=== PATIENT | female | born 1975 | race Hispanic/Latino ===

== ENCOUNTER 2017-08-22 03:17 | Emergency (ER) | payer BC ==
[2017-08-22] MEDS ORDERED: ONDANSETRON 4 MG/2 ML VIAL ONE (04:25)
[2017-08-22] MEDS ORDERED: DICYCLOMINE HCL 10 MG CAP ONE (04:25)
[2017-08-22] MEDS ORDERED: LOPERAMIDE HCL 2 MG CAPSULE ONE (04:25)
[2017-08-22 04:36] LABS: Absolute Lymphocytes (CBC) 1.3 K/uL (0.7-4.9); Absolute Monocytes 0.8 K/uL (0.1-1.3); Absolute Neutrophil 15.5 K/uL (1.8-8.0); Basophils % 0.3 % (0-1.3); Eosinophils % 0.2 % (0-4.4); Hematocrit 35.3 % (36.0-45.0); Lymphocytes % 7.3 % (15.3-44.8); MCH 23.8 pg (27.0-35.0); MCV 75.4 fL (80-100); MPV 8.2 fL (7.6-11.3); Monocytes % 4.7 % (3.3-12.3); RBC Red Blood Cell Count 4.68 M/uL (3.86-4.86)
[2017-08-22 04:54] LABS: Bicarbonate 20 mEq/L (21-31); Glucose Level 131 mg/dL (65-120); Lipase 20 U/L (22-51); Sodium Level 137 mEq/L (135-145)
[2017-08-22 05:00] LABS: ALT/SGPT 23 IU/L (10-60); AST/SGOT 28 IU/L (10-42); Alkaline Phosphatase 75 IU/L (42-121); Amylase Level 47 U/L (28-100); BUN Blood Urea Nitrogen 10 mg/dL (6-20); Bilirubin Direct 0.1 mg/dL (0-0.2); Bilirubin Total 0.3 mg/dL (0.3-1.2); Protein, Total 7.6 g/dL (6.0-8.3)
[2017-08-22 05:04] LABS: Blood Morphology Comment NOT SEEN (NOT SEEN); Platelet Estimate ADEQ
[2017-08-22 05:15] LABS: Urine Blood 1+ (NEG); Urine Glucose NEGATIVE (NEG); Urine Protein NEGATIVE (NEG); Urine Specific Gravity 1.025 (1.005-1.030); Urine pH 5.5 (5.0-7.0)
[2017-08-22 05:18] LABS: Urine Bacteria >50 /HPF (<20); Urine Culture Reflex Order REFLEXED
[2017-08-22] MEDS ORDERED: KETOROLAC 30 MG/ML INJ ONE (05:27)
--- NOTE | 2017-08-22 05:35 | ER ---
Nurse's Notes [facility] Name: Cristina Reese Age: 42 yrs Sex: Female : 1975 Arrival Date: 08/22/2017 Time: 03:18 Bed 15 Private MD: Diagnosis: Vomiting, unspecified;Diarrhea, unspecified Presentation: 08/22 03:36 Risk Assessment: Do you want to hurt yourself or someone else? Patient reports no ak1 desire to harm self or others. Initial Sepsis Screen: Does the patient meet any 2 criteria? No. Patient's initial sepsis screen is negative. Does the patient have a suspected source of infection? No. Patient's initial sepsis screen is negative. Care prior to arrival: None. 03:36 Acuity: SRI 3 ak1 03:36 Method Of Arrival: Wheelchair ea 03:36 Presenting complaint: Patient states: Reports she started feeling sick at midnight ea reports having nausea, vomiting and diarrhea. States " I ate shrimp pasta at dinner and at 12 is when everything started". Transition of care: patient was not received from another setting of care. Onset of symptoms was August 22, 2017. Triage Assessment: 03:35 General: Appears uncomfortable, Behavior is calm, cooperative. 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 - Social history:: Smoking status: Patient/guardian denies using tobacco. Screenin:36 Abuse screen: Denies threats or abuse. Denies injuries from another. Nutritional ak1 screening: No deficits noted. Tuberculosis screening: No symptoms or risk factors identified. Fall Risk None identified. Assessment: 03:39 General: Appears uncomfortable, Behavior is cooperative. Pain: Complains of pain in ea right lower quadrant and left lower quadrant Pain currently is 9 out of 10 on a pain scale. Quality of pain is described as crampy, Pain began 4 hours ago. Neuro: Level of Consciousness is awake, alert, obeys commands, Oriented to person, place, time, situation. Cardiovascular: Heart tones S1 S2 present Patient's skin is warm and dry. Respiratory: Airway is patent Respiratory effort is even, unlabored, Respiratory pattern is regular, Breath sounds are clear bilaterally. GI: Bowel sounds present X 4 quads. Abd is soft X 4 quads Abd is non tender in right lower quadrant and left lower quadrant Reports lower abdominal pain, diarrhea, nausea, vomiting. GI: Reports cramping. : No signs and/or symptoms were reported regarding the genitourinary system. EENT: No signs and/or symptoms were reported regarding the EENT system. Derm: Skin is dry, Skin is pale, Skin temperature is warm. Musculoskeletal: Circulation, motion, and sensation intact. 04:33 Reassessment: Patient appears in no apparent distress at this time. Patient and/or ak1 family updated on plan of care and expected duration. Pain level reassessed. Patient states symptoms have not improved. 05:42 Reassessment: Patient appears in no apparent distress at this time. Patient and/or ak1 family updated on plan of care and expected duration. Pain level reassessed. Patient is alert, oriented x 3, equal unlabored respirations, skin warm/dry/pink. Patient states feeling better. Patient states symptoms have improved. Vital Signs: 03:34 BP 149 / 83; Pulse 104; Resp 20; Temp 98.2(O); Pulse Ox 100% on R/A; Weight 104.33 kg ak1 (R); Height 5 ft. 5 in. (165.10 cm) (R); Pain 8/10; 05:31 BP 140 / 76; Pulse 91; Resp 18; Temp 98.4(O); Pulse Ox 97% on R/A; Pain 6/10; ak1 03:34 Body Mass Index 38.27 (104.33 kg, 165.10 cm) ak1 ED Course: 03:18 Patient arrived in ED. am2 03:35 Arm band placed on Patient placed in an exam room, on a stretcher, on pulse oximetry, ak1 Patient notified of wait time. 03:36 Triage completed. ak1 03:38 Anahy Felder, FLORY is Primary Nurse. ea 03:39 Patient has correct armband on for positive identification. Placed in gown. Bed in low ea position. Call light in reach. Side rails up X 1. 03:59 Jitendra Nguyen MD is Attending Physician. tw4 04:21 Initial lab(s) drawn, by al, sent to lab. Urine collected:. Inserted saline lock: 20 ak1 gauge in right antecubital area, using aseptic technique. Blood collected. 05:32 No provider procedures requiring assistance completed. ak1 05:42 IV discontinued, intact, bleeding controlled, No redness/swelling at site. Pressure ak1 dressing applied. Administered Medications: 04:28 Drug: Zofran 4 mg Route: IVP; Site: right antecubital; ak1 05:11 Follow up: Response: No adverse reaction ea 04:28 Drug: Imodium A-D 4 mg Route: PO; ak1 05:11 Follow up: Response: No adverse reaction ea 04:28 Drug: Bentyl 20 mg Route: PO; ak1 05:11 Follow up: Response: No adverse reaction ea 05:31 Drug: TORadol 30 mg Route: IVP; Site: right antecubital; ak1 05:31 Follow up: Response: No adverse reaction; Medication administered at discharge. ak1 Outcome: 05:34 Discharge ordered by . tw4 05:41 Discharged to home ambulatory, with family. ak1 05:41 Condition: improved 05:41 Discharge instructions given to patient, Instructed on discharge instructions, follow up and referral plans. no drinking with medication, no driving heavy equipment, medication usage, Demonstrated understanding of instructions, follow-up care, medications, Prescriptions given X 3. 05:56 Patient left the ED. ak1 Signatures: Amara Michaels RN RN ak1 Yael Siddiqui Elena, RN Jitendra Meek ea, MD MD tw4
--- NOTE | 2017-08-22 05:35 | EDPHYS ---
Physician Documentation [facility] Name: Cristina Reese Age: 42 yrs Sex: Female : 1975 Arrival Date: 08/22/2017 Time: 03:18 Bed 15 Private MD: ED Physician Jitendra Nguyen HPI: 08/22 04:07 This 42 yrs old Female presents to ER via Unassigned with complaints of tw4 Abdominal Pain, Abdominal Cramping, Nausea/Vomiting/Diarrhea. 04:07 The patient presents with abdominal pain that is diffuse. Onset: The symptoms/episode tw4 began/occurred today. The symptoms do not radiate. The symptoms are described as dull. Modifying factors: The symptoms are alleviated by nothing, the symptoms are aggravated by alcohol. Severity of pain: At its worst the pain was moderate in the emergency department the pain is unchanged. 04:07 Associated signs and symptoms: Pertinent positives: nausea, vomiting, and diarrhea, tw4 nausea and vomiting, diarrhea, Pertinent negatives: anorexia, blood in stools, chest pain, constipation. The patient has not experienced similar symptoms in the past. 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 - Social history:: Smoking status: Patient/guardian denies using tobacco. ROS: 04:07 Constitutional: Negative for fever, chills, and weight loss, Cardiovascular: Negative tw4 for chest pain, palpitations, and edema, Respiratory: Negative for shortness of breath, cough, wheezing, and pleuritic chest pain. 04:07 Abdomen/GI: Positive for abdominal pain, nausea and vomiting, nausea, vomiting, and diarrhea, nausea, vomiting, diarrhea, abdominal cramps, Negative for abdominal distension, anorexia, dysphagia, hematemesis, black/tarry stool, rectal pain. Exam: 04:11 Constitutional: This is a well developed, well nourished patient who is awake, alert, tw4 and in no acute distress. Head/Face: Normocephalic, atraumatic. Chest/axilla: Normal chest wall appearance and motion. Nontender with no deformity. No lesions are appreciated. Cardiovascular: Regular rate and rhythm with a normal S1 and S2. No gallops, murmurs, or rubs. Normal PMI, no JVD. No pulse deficits. Respiratory: Lungs have equal breath sounds bilaterally, clear to auscultation and percussion. No rales, rhonchi or wheezes noted. No increased work of breathing, no retractions or nasal flaring. MS/ Extremity: Pulses equal, no cyanosis. Neurovascular intact. Full, normal range of motion. Neuro: Awake and alert, GCS 15, oriented to person, place, time, and situation. Cranial nerves II-XII grossly intact. Motor strength 5/5 in all extremities. Sensory grossly intact. Cerebellar exam normal. Normal gait. 04:11 Abdomen/GI: Inspection: abdomen appears normal, Bowel sounds: diminished, Palpation: mild abdominal tenderness, in all quadrants. Vital Signs: 03:34 BP 149 / 83; Pulse 104; Resp 20; Temp 98.2(O); Pulse Ox 100% on R/A; Weight 104.33 kg ak1 (R); Height 5 ft. 5 in. (165.10 cm) (R); Pain 8/10; 05:31 BP 140 / 76; Pulse 91; Resp 18; Temp 98.4(O); Pulse Ox 97% on R/A; Pain 6/10; ak1 03:34 Body Mass Index 38.27 (104.33 kg, 165.10 cm) ak1 MDM: 03:59 Patient medically screened. tw4 05:45 Differential diagnosis: cholecystitis, Cholelithiasis, diverticulitis, gastritis, tw4 gastroesophageal reflux disease, GI Bleed, non-specific abd pain. Data reviewed: vital signs, nurses notes. Medication response: Zofran relieved the patient's nausea. Response to treatment: the patient's symptoms have resolved after treatment, and as a result, I will discharge patient. Special discussion: Based on the patient's Hx, exam, and Dx evaluation, there is no indication for emergent surgery or inpatient Tx. It is understood by the patient/guardian that if the Sx's persist or worsen they need to return immediately for re-evaluation. I discussed with the patient/guardian in detail that at this point there is no indication for admission to the hospital. It is understood, however, that if the symptoms persist or worsen the patient needs to return immediately for re-evaluation. ED course: Pt states she feels better after IVF hydration and antiemetics. 08/22 03:59 Order name: Amylase, Serum; Complete Time: 05:14 tw4 08/22 03:59 Order name: Basic Metabolic Panel; Complete Time: 05:14 tw 08/22 05:15 Interpretation: Normal except: CO2 20; GLUC 131. tw08/22 03:59 Order name: CBC with Diff; Complete Time: 05:14 tw4 08/22 05:14 Interpretation: Normal except: WBC 17.6; HGB 11.1; HCT 35.3; MCV 75.4; MCH 23.8; MCHC tw4 31.6; RDW 16.7; NEUT A 15.5; LYM% 7.3; BRIGID% 87.5. 08/22 03:59 Order name: Hepatic Function; Complete Time: 05:14 [facility] 08/22 05:15 Interpretation: Normal except: GLOB 3.6. tw08/22 03:59 Order name: Lipase; Complete Time: 05:14 [facility] 08/22 05:15 Interpretation: Within normal limits: LIP 20. 08/22 03:59 Order name: Urine Microscopic Only 08/22 04:08 Order name: Urine Dipstick--Ancillary (enter results); Complete Time: 05:18 rg2 08/22 04:08 Order name: Urine --Ancillary (enter results); Complete Time: 05:18 2 08/22 04:38 Order name: Manual Differential; Complete Time: 05:14 EDNM 08/22 05:19 Interpretation: Normal except: BANDS [F] 5; SEGS 82; LYM 8. tw08/22 05:20 Order name: Urine Culture EDNM 08/22 03:59 Order name: IV Saline Lock; Complete Time: 04:21 tw 08/22 03:59 Order name: Labs collected and sent; Complete Time: 04:21 tw 08/22 03:59 Order name: Urine Dipstick-Ancillary (obtain specimen); Complete Time: 04:06 [facility] 08/22 04:08 Order name: Urine Test (obtain specimen); Complete Time: 04:08 2 Administered Medications: 04:28 Drug: Zofran 4 mg Route: IVP; Site: right antecubital; ak1 05:11 Follow up: Response: No adverse reaction ea 04:28 Drug: Imodium A-D 4 mg Route: PO; ak1 05:11 Follow up: Response: No adverse reaction ea 04:28 Drug: Bentyl 20 mg Route: PO; ak1 05:11 Follow up: Response: No adverse reaction ea 05:31 Drug: TORadol 30 mg Route: IVP; Site: right antecubital; ak1 05:31 Follow up: Response: No adverse reaction; Medication administered at discharge. ak1 Disposition: 08/22/17 05:34 Discharged to Home. Impression: Vomiting, unspecified, Diarrhea, unspecified. - Condition is Stable. - Discharge Instructions: Food Choices to Help Relieve Diarrhea, Adult, Diarrhea, Food Poisoning, Nausea and Vomiting, Diarrhea, [id number], Clear Liquid Diet, [id number], Food Poisoning, [id number]. - Prescriptions for Bentyl 20 mg Oral Tablet - take 1 tablet by ORAL route every 6 hours As needed; 20 tablet. Zofran 4 mg Oral Tablet - take 1 tablet by ORAL route every 12 hours As needed; 20 tablet. Lomotil 2.5- 0.025 mg Oral Tablet - take 1 tablet by ORAL route every 6 hours As needed; 20 tablet. - Family Work Release, Medication Reconciliation Form, Thank You Letter, Antibiotic Education, Prescription Opioid Use form. - Follow up: Private Physician; When: As needed; Reason: Recheck today's complaints, Continuance of care, Re-evaluation by your physician. - Problem is new. - Symptoms have improved. Signatures: Dispatcher [employer] [facility] Moshe Nogueira 2 Amara Michaels, RN RN ak1 Jitendra Nguyen MD MD tw4 Anahy Felder RN, ea Corrections: (The following items were deleted from the chart) 04:11 04:07 Associated signs and symptoms: none. 4 tw4 04:43 03:59 Creatinine for Radiology+C.LAB.BRZ ordered. [facility] 05:15 05:14 Normal except: CO2 20. [place] [id number] 05:56 05:34 08/22/2017 05:34 Discharged to Home. Impression: Vomiting, unspecified; Diarrhea, ak1 unspecified. Condition is Stable. Forms are Medication Reconciliation Form, Thank You Letter, Antibiotic Education, Prescription Opioid Use. Follow up: Private Physician; When: As needed; Reason: Recheck today's complaints, Continuance of care, Re-evaluation by your physician. Problem is new. Symptoms have improved. tw4
== END 2017-08-22 05:56 | disposition home or self-care (01) ==
LOC: ER 03:17
DX: R19.7 Diarrhea, unspecified (principal)
CPT/HCPCS: 36415; 80048; 80076; 81003; 81015; 81025; 82150; 83690; 85025; 87086; 87088; 96374; 96375; 99284; J2405